=== PATIENT | female | born 1955 | race Caucasian/White ===

== ENCOUNTER → 2016-06-14 | Outpatient (CLI) | payer MEDICAID | LOC: BMCIMAGING 10:01 | PROVIDERS: ATTEND Family Medicine | DX: M25.775 Osteophyte, left foot (principal); M19.072 Primary osteoarthritis, left ankle and foot ==

== ENCOUNTER → 2017-09-01 | Outpatient (CLI) | payer MEDICAID | LOC: FIMAGING 13:19 | PROVIDERS: ATTEND Psychiatry & Neurology Neurology | DX: M48.02 Spinal stenosis, cervical region (principal); M53.83 Other specified dorsopathies, cervicothoracic region; M50.322 Other cervical disc degeneration at C5-C6 level ==

== ENCOUNTER → 2017-09-04 | Outpatient (CLI) | payer MEDICAID ==
--- NOTE | 2017-09-04 13:24 | CPEEG ---
[f rep st] ELECTROENCEPHALOGRAM DATE OF STUDY: 09/04/2017 INTERPRETATION: Normal EEG during wakefulness and sleep. There was no potentially epileptogenic abn ormalities present in the recording. REPORT: This EEG contains 10-11 Hz alpha activity to the posterior head regions. There was no abnor mal activation at rest or during photic stimulation or hyperventilation. There was prominent beta fr equency activity in the background. This can reflect normal physiologic activity or be sometimes rel ated to medication effect. The patient became drowsy and fell asleep during the study. There was no abnormal activation drowsiness, sleep, or during times of arousal. /[id number]/MODL
== END ==
LOC: FCPNEURO 10:47
PROVIDERS: ATTEND Psychiatry & Neurology Neurology
DX: R41.3 Other amnesia (principal); Z72.820 Sleep deprivation

== ENCOUNTER → 2018-06-01 | Outpatient (CLI) | payer OTHER ==
[~2018-06-01] MED LIST: GADOBUTROL 10 ML VIAL IVP ONE
== END ==
LOC: FIMAGING 12:01
PROVIDERS: ATTEND Psychiatry & Neurology Neurology
DX: R41.3 Other amnesia (principal)
CPT/HCPCS: 70553; A9585